=== PATIENT | female | born 1940 | race African-American/Black ===

== ENCOUNTER 2016-10-31 10:27 | Emergency (ER) | payer OTHER, BC ==
[~2016-10-31] VITALS: Ht 157.5 cm; Wt 74.8 kg
--- NOTE | ~2016-10-31 | EKG ---
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
[~2016-10-31 10:27] MED LIST: ACETAMINOPHEN-1 EAC1 PO; AUGMENTIN 875-1 EACH PO; AVAPRO 150 MG150 M1 PO; AZITHROMYCIN; BACTRIM DS TAB1 EACH PO; BENADRYL25 MG PO; CELEBREX 200 M200 M1 PO; DIFLUCAN150 MG PO; DOXYCYCLINE 10100 MG PO; FLEXERIL PO; FLOVENT HFA 1110 MCG IH; IBUPROFEN 400400 M1 PO; IBUPROFEN 600600 M1 PO; KEFLEX500 MG PO; LANTUS; LISINOPRIL20 MG PO; LORTAB 5 MG/5001 TAB PO; LOVASTATIN 20 M20 MG PO; NORCO 5-325 TA1 EACH PO; POTASSIUM20 PO; PREDNISONE 10 M10 MG PO; PREDNISONE 5 MG5 M1 PO; PREDNISONE50 MG PO; SYNTHROID200 MCG PO; TAMIFLU; TRIAMTERENE-HC1 EAC1 PO; VENTOLIN17 GM INH
[2016-10-31 11:09] LABS: ABSOLUTE NEUTROPHILS 2.8 thou/uL (1.4-8.2); BASOPHILS 0.6 % (0.0-2.0); EOSINOPHILS 2.1 % (0.0-3.0); HEMATOCRIT 36.9 % (37.0-47.0); HEMOGLOBIN 12.4 gm/dL (12.0-15.0); MCH 26.7 pg (26.0-34.0); MCHC 33.5 g/dL (28.0-37.0); MCV 79.6 fL (80.0-100.0); MONOCYTES 10.6 % (1.0-8.0); PLATELET COUNT 135 thou/uL (150-400); POLYS 56.7 % (36.0-66.0); RBC 4.63 mil/uL (4.20-5.00); RDW 12.7 % (10.5-14.5); WBC 4.9 thou/uL (4.0-11.0)
[2016-10-31 11:13] LABS: MANUAL DIFF NO
[2016-10-31 11:25] LABS: CALCIUM 9.2 mg/dL (8.5-10.1); CREATININE 1.2 mg/dL (0.6-1.3); POTASSIUM 3.8 mmol/L (3.5-5.1)
[2016-10-31 11:30] LABS: ALBUMIN 3.4 g/dL (3.4-5.0); TOTAL BILIRUBIN 0.6 mg/dL (<0.1-1.0)
[2016-10-31 11:48] LABS: URINE BILIRUBIN NEGATIVE (Negative); URINE BLOOD NEGATIVE (Negative); URINE COLOR YELLOW; URINE GLUCOSE-RANDOM* NEGATIVE (Negative); URINE KETONES NEGATIVE (Negative); URINE NITRITE NEGATIVE (Negative); URINE PROTEIN (DIPSTICK) NEGATIVE (Negative); URINE UROBILINOGEN 0.2 E.U./dl (0.2-1.0)
[2016-10-31] MEDS ORDERED: PHENERGAN 25 MG25 M1 PO (12:30)
[2016-10-31 12:55] VITALS: BP 127/69
== END 2016-10-31 12:57 | disposition home or self-care (01) ==
LOC: ER 10:27
PROVIDERS: Physician Assistant
DX: R53.81 Other malaise (principal); R11.0 Nausea; Z90.710 Acquired absence of both cervix and uterus; E11.8 Type 2 diabetes mellitus with unspecified complications; I10 Essential (primary) hypertension; J45.909 Unspecified asthma, uncomplicated; E03.9 Hypothyroidism, unspecified; Z88.6 Allergy status to analgesic agent; Z88.7 Allergy status to serum and vaccine; Z91.030 Bee allergy status

== ENCOUNTER 2018-02-25 17:04 | Emergency (ER) | payer OTHER, BC ==
[~2018-02-25] VITALS: Ht 157.5 cm; Wt 77.6 kg
[~2018-02-25 17:04] MED LIST changes: +PHENERGAN 25 MG25 M1 PO
[2018-02-25 17:15] VITALS: BP 151/88
== END 2018-02-25 17:42 | disposition home or self-care (01) ==
LOC: ER 17:04
DX: S30.861A Insect bite (nonvenomous) of abdominal wall, initial encounter (principal); W57.XXXA Bitten or stung by nonvenomous insect and other nonvenomous arthropods, initial encounter; Y93.89 Activity, other specified; Y92.89 Other specified places as the place of occurrence of the external cause; Y99.8 Other external cause status; I10 Essential (primary) hypertension; E11.9 Type 2 diabetes mellitus without complications; J45.909 Unspecified asthma, uncomplicated; E03.9 Hypothyroidism, unspecified; Z90.710 Acquired absence of both cervix and uterus; Z88.8 Allergy status to other drugs, medicaments and biological substances

== ENCOUNTER 2018-07-09 17:55 | Emergency (ER) | payer OTHER, BC ==
[~2018-07-09] VITALS: Ht 157.5 cm; Wt 72.6 kg
[2018-07-09 19:27] VITALS: BP 148/77
== END 2018-07-09 19:28 | disposition home or self-care (01) ==
LOC: ER 17:55
DX: S00.83XA Contusion of other part of head, initial encounter (principal); E11.9 Type 2 diabetes mellitus without complications; I10 Essential (primary) hypertension; J45.909 Unspecified asthma, uncomplicated; E03.9 Hypothyroidism, unspecified; Z88.7 Allergy status to serum and vaccine; Z90.710 Acquired absence of both cervix and uterus; W00.0XXA Fall on same level due to ice and snow, initial encounter; Y92.59 Other trade areas as the place of occurrence of the external cause; Y93.89 Activity, other specified; Y99.8 Other external cause status

== ENCOUNTER 2018-09-23 16:51 | Emergency (ER) | payer OTHER, BC ==
[~2018-09-23] VITALS: Ht 157.5 cm; Wt 76.7 kg
--- NOTE | ~2018-09-23 | EKG ---
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
[2018-09-23 18:04] LABS: ABSOLUTE NEUTROPHILS 3.2 thou/uL (1.4-8.2); BASOPHILS 0.6 % (0.0-2.0); EOSINOPHILS 1.2 % (0.0-3.0); HEMATOCRIT 39.3 % (37.0-47.0); HEMOGLOBIN 13.2 gm/dL (12.0-15.0); MCH 27.2 pg (26.0-34.0); MCHC 33.5 g/dL (28.0-37.0); MONOCYTES 10.9 % (1.0-8.0); PLATELET COUNT 120 thou/uL (150-400); POLYS 62.3 % (36.0-66.0); RBC 4.85 mil/uL (4.20-5.00); RDW 12.8 % (10.5-14.5); WBC 5.1 thou/uL (4.0-11.0)
[2018-09-23 18:12] LABS: ANION GAP 7 mmol/L (7-16); BUN 11 mg/dL (7-18); CALCIUM 9.4 mg/dL (8.5-10.1); CHLORIDE 105 mmol/L (98-107); CO2 29 mmol/L (21-32); CREATININE 0.7 mg/dL (0.6-1.0); GLUCOSE 86 mg/dL (74-106); POTASSIUM 3.5 mmol/L (3.5-5.1); SODIUM 141 mmol/L (136-145)
[2018-09-23 18:19] LABS: URINE BILIRUBIN NEGATIVE (Negative); URINE BLOOD NEGATIVE (Negative); URINE CLARITY SL CLOUDY; URINE COLOR YELLOW; URINE GLUCOSE-RANDOM* NEGATIVE (Negative); URINE KETONES NEGATIVE (Negative); URINE LEUKOCYTES-REFLEX NEGATIVE (Negative); URINE NITRITE-REFLEX NEGATIVE (Negative); URINE PROTEIN (DIPSTICK) NEGATIVE (Negative); URINE SPECIFIC GRAVITY 1.015 (1.005-1.035); URINE UROBILINOGEN 0.2 E.U./dl (0.2-1.0)
[2018-09-23 18:20] LABS: ALBUMIN 3.5 g/dL (3.4-5.0); LIPASE 40 U/L (73-393); SGOT 22 U/L (15-37); SGPT 26 U/L (30-65); TOTAL BILIRUBIN 0.5 mg/dL (<0.1-1.0); TOTAL PROTEIN 7.2 g/dL (6.4-8.2); TROPONIN-I <0.06 ng/mL (<0.06)
[2018-09-23] MEDS ORDERED: BUTALB-APAP-CA1 EACH PO (20:28)
[2018-09-23 20:34] VITALS: BP 127/69
[2018-09-24] MEDS ORDERED: VALACYCLOVIR1000 MG PO (07:25)
== END 2018-09-23 20:38 | disposition home or self-care (01) ==
LOC: ER 16:51
PROVIDERS: Physician Assistant
DX: G43.909 Migraine, unspecified, not intractable, without status migrainosus (principal); R11.2 Nausea with vomiting, unspecified; I10 Essential (primary) hypertension; E11.9 Type 2 diabetes mellitus without complications; J45.909 Unspecified asthma, uncomplicated; E03.9 Hypothyroidism, unspecified; Z88.7 Allergy status to serum and vaccine; Z90.710 Acquired absence of both cervix and uterus; Z79.4 Long term (current) use of insulin

== ENCOUNTER 2018-09-24 06:35 | Emergency (ER) | payer OTHER, BC ==
[~2018-09-24] VITALS: Ht 154.9 cm; Wt 75.8 kg
[~2018-09-24 06:35] MED LIST changes: +BUTALB-APAP-CA1 EACH PO
[2018-09-24 07:10] LABS: ABSOLUTE NEUTROPHILS 3.4 thou/uL (1.4-8.2); BASOPHILS 0.6 % (0.0-2.0); EOSINOPHILS 0.9 % (0.0-3.0); HEMATOCRIT 37.2 % (37.0-47.0); HEMOGLOBIN 12.4 gm/dL (12.0-15.0); LYMPHOCYTES 20.7 % (24.0-44.0); MCH 26.9 pg (26.0-34.0); MCHC 33.3 g/dL (28.0-37.0); MCV 80.9 fL (80.0-100.0); MONOCYTES 10.6 % (1.0-8.0); POLYS 67.2 % (36.0-66.0); RDW 12.6 % (10.5-14.5); WBC 5.1 thou/uL (4.0-11.0)
[2018-09-24] MEDS ORDERED: VALACYCLOVIR1000 MG PO (07:25)
[2018-09-24 08:22] VITALS: BP 123/56
[2018-09-24 08:24] LABS: PLATELET COUNT 112 thou/uL (150-400)
== END 2018-09-24 08:20 | disposition home or self-care (01) ==
LOC: ER 06:35
PROVIDERS: Emergency Medicine
DX: B02.30 Zoster ocular disease, unspecified (principal); I10 Essential (primary) hypertension; E11.9 Type 2 diabetes mellitus without complications; J45.909 Unspecified asthma, uncomplicated; E03.9 Hypothyroidism, unspecified; Z88.7 Allergy status to serum and vaccine; Z90.710 Acquired absence of both cervix and uterus; Z79.4 Long term (current) use of insulin

== ENCOUNTER 2018-10-01 14:39 | Emergency (ER) | payer OTHER, BC ==
[~2018-10-01] VITALS: Ht 157.5 cm; Wt 76.7 kg
[~2018-10-01 14:39] MED LIST changes: -FLOVENT HFA 1110 MCG IH; +FLOVENT HFA12 G1 INH; +VALACYCLOVIR1000 MG PO
[2018-10-01] MEDS ORDERED: ATORVASTATIN CA40 MG PO (15:25)
[2018-10-01] MEDS ORDERED: FLONASE 0.05%50 MCG NASAL (15:25)
[2018-10-01] MEDS ORDERED: NEO/POLYMIXIN/DE5 M1 OPHTHALMIC (15:27)
[2018-10-01] MEDS ORDERED: AMOXIL 875 MG875 M1 PO (15:29)
[2018-10-01] MEDS ORDERED: HUMALOG100 UNIT/1 SUBQ (15:30)
[2018-10-01] MEDS ORDERED: LEVEMIR SUBQ (15:31)
[2018-10-01] MEDS ORDERED: KLOR-CON M2020 MEQ PO (15:32)
[2018-10-01] MEDS ORDERED: NORCO 5-325 TA1 EACH PO (17:39)
[2018-10-01 17:55] VITALS: BP 112/72
== END 2018-10-01 17:55 | disposition home or self-care (01) ==
LOC: ER 14:39
DX: H49.01 Third [oculomotor] nerve palsy, right eye (principal); E11.9 Type 2 diabetes mellitus without complications; I10 Essential (primary) hypertension; J45.909 Unspecified asthma, uncomplicated; E03.9 Hypothyroidism, unspecified; Z86.73 Personal history of transient ischemic attack (TIA), and cerebral infarction without residual deficits; Z88.7 Allergy status to serum and vaccine; Z90.710 Acquired absence of both cervix and uterus

== ENCOUNTER 2019-02-25 13:03 | Emergency (ER) | payer OTHER, BC ==
[~2019-02-25] VITALS: Ht 157.5 cm; Wt 77.1 kg
[~2019-02-25 13:03] MED LIST changes: +AMOXIL 875 MG875 M1 PO; +ATORVASTATIN CA40 MG PO; +FLONASE 0.05%50 MCG NASAL; +HUMALOG100 UNIT/1 SUBQ; +KLOR-CON M2020 MEQ PO; +LEVEMIR SUBQ; +NEO/POLYMIXIN/DE5 M1 OPHTHALMIC
[2019-02-25] MEDS ORDERED: ITCH RELIEF CRE28 GM TOP (14:00)
[2019-02-25 14:28] VITALS: BP 140/81
== END 2019-02-25 14:00 | disposition home or self-care (01) ==
LOC: ER 13:03
DX: L25.5 Unspecified contact dermatitis due to plants, except food (principal); I10 Essential (primary) hypertension; E11.9 Type 2 diabetes mellitus without complications; J45.909 Unspecified asthma, uncomplicated; E03.9 Hypothyroidism, unspecified; Z86.73 Personal history of transient ischemic attack (TIA), and cerebral infarction without residual deficits; Z88.7 Allergy status to serum and vaccine; Z90.710 Acquired absence of both cervix and uterus; Z79.4 Long term (current) use of insulin

== ENCOUNTER 2020-06-12 12:06 | Emergency (ER) | payer OTHER, BC ==
[~2020-06-12] VITALS: Ht 157.5 cm; Wt 81.7 kg
[2020-06-12 12:06] VITALS: BP 146/81
[~2020-06-12 12:06] MED LIST changes: +ITCH RELIEF CRE28 GM TOP
== END 2020-06-12 12:35 | disposition home or self-care (01) ==
LOC: ER 12:06
DX: S60.465A Insect bite (nonvenomous) of left ring finger, initial encounter (principal); I10 Essential (primary) hypertension; E11.9 Type 2 diabetes mellitus without complications; J45.909 Unspecified asthma, uncomplicated; E03.9 Hypothyroidism, unspecified; Z90.710 Acquired absence of both cervix and uterus; Z79.899 Other long term (current) drug therapy; Z79.4 Long term (current) use of insulin; Z88.7 Allergy status to serum and vaccine; W57.XXXA Bitten or stung by nonvenomous insect and other nonvenomous arthropods, initial encounter; Y93.89 Activity, other specified; Y92.89 Other specified places as the place of occurrence of the external cause; Y99.8 Other external cause status

== ENCOUNTER 2020-12-01 15:49 | Emergency (ER) | payer OTHER, BC ==
[~2020-12-01] VITALS: Ht 172.7 cm; Wt 72.6 kg
[2020-12-01 17:26] VITALS: BP 134/90
[2020-12-01] MEDS ORDERED: TESSALON PERLE100 MG PO (18:13)
== END 2020-12-01 18:30 | disposition home or self-care (01) ==
LOC: ER 15:49
DX: J02.9 Acute pharyngitis, unspecified (principal); H61.20 Impacted cerumen, unspecified ear; I10 Essential (primary) hypertension; E11.9 Type 2 diabetes mellitus without complications; J45.909 Unspecified asthma, uncomplicated; E03.9 Hypothyroidism, unspecified; Z90.710 Acquired absence of both cervix and uterus; Z88.7 Allergy status to serum and vaccine; Z79.4 Long term (current) use of insulin; Z79.899 Other long term (current) drug therapy

== ENCOUNTER 2021-01-08 14:01 | Emergency (ER) | payer OTHER, BC ==
[~2021-01-08] VITALS: Ht 172.7 cm; Wt 72.6 kg
[~2021-01-08 14:01] MED LIST changes: +TESSALON PERLE100 MG PO
[2021-01-08] MEDS ORDERED: PREDNISONE 10 M10 M1 PO (16:02)
[2021-01-08 16:33] VITALS: BP 172/91
== END 2021-01-08 16:32 | disposition home or self-care (01) ==
LOC: ER 14:01
DX: L23.7 Allergic contact dermatitis due to plants, except food (principal); E11.9 Type 2 diabetes mellitus without complications; I10 Essential (primary) hypertension; E03.9 Hypothyroidism, unspecified; Z88.7 Allergy status to serum and vaccine; Z79.899 Other long term (current) drug therapy; Z90.710 Acquired absence of both cervix and uterus; Z86.73 Personal history of transient ischemic attack (TIA), and cerebral infarction without residual deficits

== ENCOUNTER 2021-04-15 13:06 | Emergency (ER) | payer OTHER, BC ==
[~2021-04-15] VITALS: Ht 157.5 cm; Wt 72.6 kg
[~2021-04-15 13:06] MED LIST changes: +PREDNISONE 10 M10 M1 PO
[2021-04-15 16:26] VITALS: BP 151/69
== END 2021-04-15 16:26 | disposition home or self-care (01) ==
LOC: ER 13:06
DX: L50.9 Urticaria, unspecified (principal); E11.9 Type 2 diabetes mellitus without complications; I10 Essential (primary) hypertension; J45.909 Unspecified asthma, uncomplicated; E03.9 Hypothyroidism, unspecified; Z79.4 Long term (current) use of insulin; Z90.710 Acquired absence of both cervix and uterus; Z79.899 Other long term (current) drug therapy; Z88.7 Allergy status to serum and vaccine

== ENCOUNTER 2021-04-28 08:10 | Emergency (ER) | payer OTHER, BC ==
[~2021-04-28] VITALS: Ht 157.5 cm; Wt 72.6 kg
[2021-04-28 08:17] VITALS: BP 184/90
[2021-04-28] MEDS ORDERED: ACYCLOVIR 800800 MG PO (08:33)
[2021-04-28] MEDS ORDERED: BENADRYL25 MG PO (08:36)
[2021-04-28] MEDS ORDERED: PREDNISONE 20 M20 MG PO (08:36)
== END 2021-04-28 08:49 | disposition home or self-care (01) ==
LOC: ER 08:10
DX: B02.9 Zoster without complications (principal); R21 Rash and other nonspecific skin eruption; I11.9 Hypertensive heart disease without heart failure; E11.9 Type 2 diabetes mellitus without complications; J45.909 Unspecified asthma, uncomplicated; E03.9 Hypothyroidism, unspecified; Z79.4 Long term (current) use of insulin; Z79.899 Other long term (current) drug therapy; Z90.710 Acquired absence of both cervix and uterus; Z88.7 Allergy status to serum and vaccine